=== PATIENT | female | born 1955 | race Two or more races ===

== ENCOUNTER 2016-11-20 09:07 | Emergency (ER) | payer MEDICAID ==
--- NOTE | 2016-11-20 10:57 | RAD ---
LEFT SHOULDER 3 VIEWS HISTORY: Left shoulder pain, prior scapular fracture. External rotation, Grashey, and transscapular views of the left shoulder. COMPARISON: 05/10/2016. ALIGNMENT: Grossly unremarkable. FRACTURE: No displaced acute fracture. ACROMIOCLAVICULAR JOINT: Grossly unremarkable. GLENOHUMERAL JOINT: Grossly unremarkable. ABNORMAL CALCIFICATIONS: None. VISIBLE LUNG FELICIANO: Grossly clear. IMPRESSION: No gross malalignment or displaced acute fracture.
== END 2016-11-20 12:01 | disposition home or self-care (01) ==
LOC: ED 09:07
DX: M75.02 Adhesive capsulitis of left shoulder (principal); E11.9 Type 2 diabetes mellitus without complications; E78.00 Pure hypercholesterolemia, unspecified; E78.5 Hyperlipidemia, unspecified